=== PATIENT | female | born 1955 | race Caucasian/White ===

== ENCOUNTER 2016-04-19 18:30 | Emergency (ER) | payer OTHER ==
[~2016-04-19] VITALS: Ht 157.5 cm; Wt 72.6 kg
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
[2016-04-19] MEDS ORDERED: IBUPROFEN800 M1 PO (20:43)
[2016-04-19] MEDS ORDERED: CYCLOBENZAPRINE10 M1 PO (20:43)
[2016-04-19] MEDS ORDERED: LEVOTHYROXINE125 MCG PO (20:54)
[2016-04-19] MEDS ORDERED: METFORMIN HCL500 M3 PO (20:54)
[2016-04-19 20:55] VITALS: BP 124/76
== END 2016-04-19 20:58 ==
LOC: ERH 18:30
DX: S39.012A Strain of muscle, fascia and tendon of lower back, initial encounter (principal); S16.1XXA Strain of muscle, fascia and tendon at neck level, initial encounter; V43.52XA Car driver injured in collision with other type car in traffic accident, initial encounter; Y92.9 Unspecified place or not applicable
CPT/HCPCS: 72050; 72110